=== PATIENT | male | born 1980 | race Caucasian/White ===

== ENCOUNTER 2022-05-30 12:49 | Emergency (ER) | payer BC ==
[2022-05-30 13:40] LABS: ANION GAP 11.7 mmol/L (5-15)
== END 2022-05-30 14:00 | disposition home or self-care (01) ==
LOC: KA.ED 12:49
DX: R20.2 Paresthesia of skin (principal); R22.0 Localized swelling, mass and lump, head; Z79.82 Long term (current) use of aspirin; Z72.0 Tobacco use
CPT/HCPCS: 36415; 80048; 84484; 85025; 93005; 93010; 99283; 99284